=== PATIENT | female | born 1995 | race Caucasian/White ===

== ENCOUNTER 2016-08-16 12:15 | Emergency (ER) | payer OTHER ==
[2016-08-16] MEDS ORDERED: DEXAMETHASONE 10 MG/ML VIAL PO STA (13:32)
[2016-08-16] MEDS ORDERED: CHERRY SYRUP 10 ML UDC PO ONE (13:37)
[2016-08-16] MEDS ORDERED: DEXAMETHASONE 10 MG/ML VIAL ONE (13:37)
== END 2016-08-16 13:50 | disposition home or self-care (01) ==
DX: L24.5 Irritant contact dermatitis due to other chemical products (principal); E03.9 Hypothyroidism, unspecified
CPT/HCPCS: 99283; A9270

== ENCOUNTER 2020-10-07 14:04 | Emergency (ER) | payer MEDICAID, OTHER ==
[2020-10-07 14:15] VITALS: BP 157/91
--- NOTE | 2020-10-07 14:48 | ED Physician Documentation ---
PD HPI LOWER EXT INJURY - Stated complaint Stated Complaint: RT LEG INJURY - Chief complaint Chief Complaint: Ext Problem - History obtained from History obtained from: Patient - Additional information Additional information: She fell while snowboarding about a month ago. It was not too bad for the first couple of weeks but has had progressive IT band and hamstring pain ever since. She is able to walk and bear weight but is using crutches for partial weightbearing on the right. She feels like her back is starting to hurt because it is compensating for the right leg pain. Review of Systems Constitutional: reports: Reviewed and negative Eyes: reports: Reviewed and negative Ears: reports: Reviewed and negative Nose: reports: Reviewed and negative PD PAST MEDICAL HISTORY - Past Medical History Respiratory: Asthma Endocrine/Autoimmune: HyPOthyroidism - Past Surgical History Past Surgical History: Yes HEENT: Tonsil/Adenoidectomy - Present Medications Home Medications: Ambulatory Orders Medication Instructions Recorded Confirmed Albuterol Sulfate [Proair Hfa 1 - 2 puffs PRN 08/16/16 Inhaler] Levothyroxine [Synthroid] 137 mcg DAILY 08/16/16 08/16/16 Cyclobenzaprine [Flexeril] 10 mg PO TID PRN #20 tablet 10/07/20 HYDROcod/ACETAM 5/325 [[place] 5/325] 1 - 2 tab PO Q6H PRN #15 tablet 10/07/20 Ibuprofen [Motrin] 800 mg PO Q8H PRN #30 tablet 10/07/20 - Allergies Allergies/Adverse Reactions: Allergies Allergy/AdvReac Type Severity Reaction Status Date / Time Penicillins Allergy Unknown Unknown Verified 08/16/16 13:15 - Social History Does the pt smoke?: No Smoking Status: Never smoker Does the pt drink ETOH?: No Does the pt have substance abuse?: No PD ED PE NORMAL - Vitals Vital signs reviewed: Yes - General General: Alert and oriented X 3, No acute distress - HEENT HEENT: PERRL, EOMI - Neck Neck: Supple, no meningeal sign, No bony TTP - Cardiac Cardiac: RRR, No murmur - Respiratory Respiratory: No respiratory distress, Clear bilaterally - Abdomen Abdomen: Non tender - Extremities Extremities: Other (No bony tenderness of the right lower extremity or midline lumbar spine. She is tender over the right IT band and the hamstring. She is able to walk. Hamstring strength is normal but painful. Ligamentous testing of the right knee is normal.) - Neuro Neuro: Alert and oriented X 3, Normal speech Results - Vitals Vitals: Vital Signs - 24 hr 10/07/20 14:09 Temperature 36.3 C L Heart Rate 90 Respiratory 18 Rate Blood Pressure 157/91 H O2 Saturation 98 Oxygen O2 Source Room air PD MEDICAL DECISION MAKING - ED course ED course: 24-year-old woman with muscular and tendinous injuries to the right leg from a snowboarding accident a month ago. I offered x-rays but with the discussion that I felt they would be low yield and she declined preferring to try something for pain and follow-up with orthopedics. Departure - Departure Disposition: Home, Self Care Clinical Impression: Iliotibial band syndrome of right side Hamstring muscle strain Qualifiers: Encounter type: initial encounter Laterality: right Qualified Code(s): S76.311A - Strain of muscle, fascia and tendon of the posterior muscle group at thigh level, right thigh, initial encounter Condition: Good Record reviewed to determine appropriate education?: Yes Instructions: ED Strain Muscle Ext Follow-Up: [facility] [Provider Group] Prescriptions: Cyclobenzaprine [Flexeril] 10 mg PO TID PRN #20 tablet PRN Reason: Spasms Ibuprofen [Motrin] 800 mg PO Q8H PRN #30 tablet PRN Reason: PAIN &/OR FEVER HYDROcod/ACETAM 5/325 [[place] 5/325] 1 - 2 tab PO Q6H PRN #15 tablet PRN Reason: Pain Comments: Follow-up with the orthopedics clinic calling today or Saturday for an appointment. Return for new or worsening symptoms. Do not drink or drive while taking narcotic pain medication. Note that many narcotic pain relievers also contain Tylenol/acetaminophen. Please ensure that your total dose of acetaminophen from all sources does not exceed 3 g (3000 mg) per day. You may get constipated while on this medication. Take a stool softener such as Colace twice a day while you are on it. Also add an yoza-wia-lfebjek laxative such as senna or MiraLAX on any day that you do not have a bowel movement. If you received a narcotic pain medication or sedative while in the emergency department, do not drive for the next 24 hours.
== END 2020-10-07 14:58 | disposition home or self-care (01) ==
LOC: ED 14:04
DX: S76.311A Strain of muscle, fascia and tendon of the posterior muscle group at thigh level, right thigh, initial encounter (principal); M76.31 Iliotibial band syndrome, right leg; V00.311A Fall from snowboard, initial encounter; Y93.23 Activity, snow (alpine) (downhill) skiing, snowboarding, sledding, tobogganing and snow tubing
CPT/HCPCS: 99283; 99284

== ENCOUNTER 2020-10-17 07:00 | Outpatient (CLI) | payer MEDICAID ==
--- NOTE | 2020-10-18 09:42 | XRAY Report ---
PROCEDURE: Lumbar Spine 2 View INDICATIONS: ILIOTIBIAL BAND SYNDROME, R KNEE TECHNIQUE: 3 views of the lumbar spine were acquired. COMPARISON: 01/03/2009. FINDINGS: Bones: 5 [id number] vertebrae are present. There is levocurvature of the lumbar spine centered at L3. Straightening of normal lumbar lordosis. No acute vertebral body compression fractures. No suspicious bony lesions. No evidence for spondylolisthesis. Soft tissues: Overlying bowel gas pattern is normal. No suspicious soft tissue calcifications. IMPRESSION: 1. Lumbar spine without acute fracture or dislocation. 2. Levocurvature of the lumbar spine centered at L3 with straightening of normal lumbar lordosis. Fin dings may be in part due to patient positioning and/or concurrent muscle spasms. Reviewed by: Raoul Bolton MD on 10/18/2020 9:40 AM PDT Approved by: Raoul Bolton MD on 10/18/2020 9:40 AM PDT Station ID: [id number]
== END 2020-10-17 23:59 | disposition home or self-care (01) ==
LOC: DI.N 07:00
PROVIDERS: ATTEND Family Medicine
DX: M76.31 Iliotibial band syndrome, right leg (principal)

== ENCOUNTER 2025-01-14 11:12 | Inpatient (IN) ==
[2025-01-14] MEDS ORDERED: CALCIUM CARBONATE CHEW 500 MG TABLET PO PRN (12:25)
[2025-01-14] MEDS ORDERED: miSOPROStoL 200 MCG TABLET PR PRN (12:25)
[2025-01-14] MEDS ORDERED: ACETAMINOPHEN 500 MG TABLET PO PRN (12:25)
[2025-01-14] MEDS ORDERED: LABETALOL 20 MG/4 ML SYRINGE IVP PRN ×3 (12:25)
[2025-01-14] MEDS ORDERED: lidocaine 1% 20 ML MDV ID PRN (12:25)
[2025-01-14] MEDS ORDERED: hydrALAZINE INJ 20 MG/ML VIAL IVP PRN (12:25)
[2025-01-14] MEDS ORDERED: CARBOPROST TROMETHAMINE 250 MCG/ML VIAL IM PRN (12:25)
[2025-01-14] MEDS ORDERED: METOCLOPRAMIDE 10 MG/2 ML VIAL IVP PRN (12:25)
[2025-01-14] MEDS ORDERED: NIFEdipine 10 MG CAPSULE PO PRN (12:25)
[2025-01-14] MEDS ORDERED: OXYTOCIN 10 UNIT/ML VIAL IM PRN (12:25)
[2025-01-14] MEDS ORDERED: TRANEXAMIC ACID IN NACL 1,000 MG/100 ML BAG IV PRN (12:25)
[2025-01-14] MEDS ORDERED: fentaNYL 100 MCG/2 ML VIAL IVP PRN (12:25)
[2025-01-14] MEDS ORDERED: TERBUTALINE 1 MG/ML VIAL SUBQ PRN (12:25)
[2025-01-14] MEDS ORDERED: miSOPROStoL 200 MCG TABLET BC PRN (12:25)
[2025-01-14] MEDS ORDERED: METHYLERGONOVINE 0.2 MG/ML VIAL IM PRN (12:25)
[2025-01-14] MEDS ORDERED: SODIUM CHLORIDE FLUSH 0.9% 10 ML SYRINGE IVP PRN (12:25)
[2025-01-14 13:05] LABS: BASOPHILS # (AUTO) 0.1 10^3/uL (0.0-0.1); BASOPHILS % (AUTO) 0.5 %; EOSINOPHILS # (AUTO) 0.1 10^3/uL (0.0-0.7); EOSINOPHILS % (AUTO) 0.9 %; HCT - HEMATOCRIT 32.9 % (37.0-47.0); HGB - HEMOGLOBIN 10.4 g/dL (12.0-16.0); LYMPHOCYTES % (AUTO) 15.8 %; MEAN CORPUSCULAR HEMOGLOBIN 23.4 pg (27.0-31.0); MEAN CORPUSCULAR HGB CONC 31.6 g/dL (32.0-36.0); MEAN CORPUSCULAR VOLUME 73.9 fL (81.0-99.0); MEAN PLATELET VOLUME 10.1 fL (7.9-10.8); MONOCYTES # (AUTO) 0.8 10^3/uL (0.0-1.0); MONOCYTES % (AUTO) 6.6 %; NEUTROPHILS # (AUTO) 9.5 10^3/uL (1.5-6.6); NEUTROPHILS % (AUTO) 75.5 %; PLT - PLATELET COUNT 340 10^3/uL (130-450); RED BLOOD COUNT 4.45 10^6/uL (4.20-5.40); RED CELL DISTRIBUTION WIDTH 17.1 % (12.0-15.0); WHITE BLOOD COUNT 12.5 x10^3/uL (4.8-10.8)
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
[2025-01-14 13:24] LABS: ALBUMIN 3.5 g/dL (3.2-5.5); ALBUMIN/GLOBULIN RATIO 1.2 (1.0-2.2); BILIRUBIN,TOTAL 0.3 mg/dL (0.2-1.0); CALCIUM 8.9 mg/dL (8.5-10.3); CREATININE 0.5 mg/dL (0.6-1.3); POTASSIUM 4.1 mmol/L (3.5-4.5); TOTAL PROTEIN 6.4 g/dL (6.4-8.9)
[2025-01-14] MEDS: miSOPROStoL 100 MCG TABLET PO SCH (13:40)
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
[2025-01-14] MEDS: SODIUM CHLORIDE FLUSH 0.9% 10 ML SYRINGE IVP SCH (21:35)
[2025-01-14] MEDS: metFORMIN 500 MG TABLET PO SCH ×2 (21:46→23:03)
[2025-01-14] MEDS: diphenhydrAMINE 25 MG CAPSULE PO PRN (21:47)
[2025-01-14] MEDS: ceFAZolin (2G) 2 GM in SODIUM CHLORIDE 0.9% MINIBAG 100 ML IV ONE (21:58)
[2025-01-15] MEDS: ceFAZolin 1 GM in SODIUM CHLORIDE 0.9% MINIBAG 100 ML IV SCH (02:00)
--- NOTE | 2025-01-15 11:35 | PROVIDER PROGRESS NOTE ---
Labor Progress Note Uterine Monitoring Uterine Monitoring Mode: positive External toco Contraction Frequency (min/apart): 2-7. Irregular Contraction Intensity: positive Mild Monitoring Monitor Mode: positive External ultrasound Heart Rate Baseline: 140 Heart Rate Variability: positive Moderate (6-25 bmp) Accelerations: positive Present, 15x15 Decelerations: positive None Strip Review: positive Category I Labor Progress Note Labor Progress Note/Additional Text: Has received 5 doses misoprostol. Will give another dose then check cervix. Did not tolerate last cervical exam, so will consider nitrates with next exam. Pain dilation, will consider cervical ripening balloon versus amniotomy versus oxytocin. Currently mom and baby are doing well
[2025-01-15] MEDS: ONDANSETRON ODT 4 MG TABLET PO PRN (12:20)
--- NOTE | 2025-01-15 13:08 | PROVIDER PROGRESS NOTE ---
Labor Progress Note Labor Progress Note Labor Progress Note/Additional Text: Changed from close to 3 cm. SROM followed by contractions. Feeling them regularly. Will reassess in 2 hours.
[2025-01-15] MEDS: LACTATED RINGERS 1,000 ML IV PRN (13:18)
[2025-01-15] MEDS: AMPICILLIN 2 GM in SODIUM CHLORIDE 0.9% MINIBAG 100 ML IV ONE (13:30)
[2025-01-15] MEDS ORDERED: ROPIVACAINE 0.2% 200 MG/100 ML BAG EP ONE (13:47)
--- NOTE | 2025-01-15 14:16 | PHARMACY PROGRESS NOTE ---
Best Possible Medication History Admit Date and Time: 01/14/25 [id number] Home Medications Medication Instructions Recorded Confirmed Type vitamins no.154-ferrous 1 tab PO .daily #90 t abs 08/06/24 01/15/25 Rx fumarate 27 mg-folic acid 1 mg tablet ferrous sulfate 325 mg (65 mg 325 mg PO .QOD 10/22/24 01/15/25 History iron) tablet (Feosol) blood sugar diagnostic (Blood #10 ea 11/03/24 01/11/25 Rx Glucose Test strips) blood-glucose meter (Blood Glucose #1 ea 11/03/2404/29 Rx Monitoring kit) lancets 33 gauge (Ultra Thin #100 ea 11/03/24 01/11/25 Rx Lancets) magnesium 200 mg tablet 200 mg PO DAILY 11/05/24 History aspirin 81 mg tablet,delayed 81 mg PO DAILY prevent pr eeclampsia 01/15/25 01/15/25 History release (Enteric Coated Aspirin) cholecalciferol (vitamin D3) 50 50 mcg PO DAILY 01/15/25 History mcg (2,000 unit) capsule metformin 500 mg tablet 1,000 mg PO QPM 01/15/25 History Processed by: Pharmacy Medications reviewed in ED?: No Medication History completed: Yes Patient Interview: Pt unable to participate Secondary Source(s): Physician records and Insurance records [facility] Statement: As the person ultimately responsible for medication therapy, providers are able to order a medication from an existing home medication list in [facility] via the "Reconcile Routine" prior to Confirmation of that medication by production support manager. Such practice is discouraged except when the physician, in their clinical judgment, deems that a medical need exists for a medication without regard to previous use.
[2025-01-15] MEDS ORDERED: ePHEDrine 50 MG/ML VIAL IVP ONE (14:20)
[2025-01-15] MEDS ORDERED: ePHEDrine 50 MG/ML VIAL IVP PRN (14:27)
[2025-01-15] MEDS ORDERED: LACTATED RINGERS 500 ML IV ONE (14:27)
[2025-01-15] MEDS ORDERED: NALOXONE 0.4 MG/ML VIAL IVP PRN (14:27)
[2025-01-15] MEDS ORDERED: diphenhydrAMINE INJ 50 MG/ML VIAL IVP PRN (14:27)
[2025-01-15] MEDS ORDERED: ONDANSETRON 4 MG/2 ML VIAL IVP PRN (14:27)
[2025-01-15] MEDS ORDERED: NALBUPHINE 10 MG/ML AMP IVP PRN (14:27)
[2025-01-15] MEDS: METOCLOPRAMIDE 10 MG/2 ML VIAL IVP PRN (14:37)
[2025-01-15] MEDS ORDERED: fentaNYL 100 MCG/2 ML VIAL ONE (15:26)
[2025-01-15] MEDS ORDERED: SODIUM CHLORIDE 0.9% 10 ML VIAL ONE (15:27)
[2025-01-15] MEDS ORDERED: LIDOCAINE-PF 2% 10 ML AMP SUBQ ONE (15:27)
--- NOTE | 2025-01-15 15:32 | PROVIDER PROGRESS NOTE ---
Labor Progress Note Uterine Monitoring Uterine Monitoring Mode: positive External toco Contraction Frequency (min/apart): 2-4 Contraction Intensity: positive Strong Monitoring Monitor Mode: positive External ultrasound Heart Rate Baseline: 145 Heart Rate Variability: positive Moderate (6-25 bmp) Accelerations: positive Present, 15x15 Decelerations: positive Variable Strip Review: positive Category II Labor Progress Note Labor Progress Note/Additional Text: Rare variable deceleration. Received epidural for pain control as the contractions got more intense. Not working well, so bolusing. Will replace if not working. Does not tolerate cervical exams well, so we will wait for pain control from epidural. If unchanged, will start oxytocin.
--- NOTE | 2025-01-15 15:40 | ANESTHESIA PROCEDURE NOTE ---
Anesthesia Epidural Template Patient Report Patient Reports: positive Inadequate control (patient reports pain with contractions on left lower abdomen) Exam Epidural Medication Information: Rates pain 8/10 with contraction on left lower abdomen. T-10 level on right side, no level on left side. Minimal motor block on right side, no motor block on left. Plan Plan: positive Other (epidural bolused with 7ml 2% lidocaine, 100mcg fentanyl and 10ml of PFNS. No relief from contractions after bolus. Will replace epidural.) Other Comments Other Comments: Previously placed epidural removed with tip intact. Moved up to L3-L4 level. Prepped with chlorahexadine, 3ml of 1% lidocaine used for skin local. MASTER at 10cm. No CSF, Heme or paresthesia with epidural placement. Positive CSF with 25G whitacer spinal needal. Catheter advanced with ease to 16cm at the skin. Test dose was negative with 3ml of 2% lidocaine with epi. Patient rates pain 0/10 after test dose. Epidural drip changed to a continuous infusion at 10ml/hr with 4ml q 10mins pcea.
[2025-01-15] MEDS ORDERED: LIDOCAINE 2%-EPI 1:100000 20 ML MDV ONE (15:44)
[2025-01-15] MEDS: AMPICILLIN 1 GM in SODIUM CHLORIDE 0.9% MINIBAG 100 ML IV SCH (18:11)
[2025-01-15] MEDS: ROPIVACAINE 0.2% 200 MG/100 ML BAG EP PRN (22:12)
[2025-01-15] MEDS: OXYTOCIN/SODIUM CHLORIDE 500 ML IV PRN (22:59)
[2025-01-16] MEDS ORDERED: ONDANSETRON 4 MG/2 ML VIAL IVP PRN (01:29)
[2025-01-16] MEDS ORDERED: SIMETHICONE CHEW 80 MG TABLET PO PRN (01:29)
[2025-01-16] MEDS ORDERED: WITCH HAZEL/GLYCERIN 1 PAD TOP PRN (01:29)
[2025-01-16] MEDS ORDERED: CALCIUM CARBONATE CHEW 500 MG TABLET PO PRN (01:29)
--- NOTE | 2025-01-16 01:35 | DELIVERY NOTE ---
Delivery Note Labor Labor: positive Augmented by oxytocin Infant Delivery Method Delivery Method: positive Spontaneous vaginal delivery Cervical Ripening Method Cervical Ripening Method: positive Misoprostil Presentation Presentation: positive Vertex Nuchal Cord Nuchal Cord: positive Present Amniotic Fluid Description Amniotic Fluid Description: positive Clear Laceration Laceration: positive 2nd degree Suture Suture Type: positive Vicryl Suture Size: positive 3-0 and 4-0 : positive Placed in direct skin contact with mother and [place] used Cord Cord: positive 3 vessels Placenta Placenta: positive Intact Estimated Blood Loss Estimated Blood Loss (in cc): 450 Post Delivery Events Post Delivery Events: positive No post delivery events Delivery Comments (Free Text/Narrative) Delivery Comments (Free Text/Narrative): Preoperative Diagnoses 39 weeks gestation Induction of labor Gestational diabetes managed with oral antihyperglycemics Postoperative Diagnoses Same Status post spontaneous vaginal delivery Delivered live bo Second-degree midline laceration Summary Patient has been at 39 weeks for induction of labor secondary to gestational diabetes managed with metformin. She had 5 then had doses of misoprostol SROM and began amira regularly. She continued to progress until complete and started pushing. While pushing, contractions started spacing out, so oxytocin was initiated for augmentation. She continued to push until to deliver. Delivery Summary: Patient was placed in the dorsal lithotomy position. Upon maternal pushing the head was delivered atraumatically followed by the anterior shoulder, posterior shoulder, then the remainder of the infant's body. Nuchal cord was present, but I was unable to reduce this, and baby delivered quickly as I was attempting to reduce the cord. A male was delivered with APGARS of 8 at 1 minute and 9 at 5 minutes. The was placed on its mother's chest . After the cord finished pulsating, the umbilical cord was clamped times two and cut. The placenta delivered intact with three vessel cord. Placenta was not sent to pathology. Thirty units of Pitocin were added to the IV fluid and allowed to run freely. Uterine massage was performed until uterus was deemed firm. Upon inspection of the perineum, brisk bleeding was noted from a second-degree midline laceration. The cervix also seemed to be bleeding. A sponge was placed in the vagina to stop the cervical bleeding and the second-degree laceration was repaired in a running fashion. Attention was then turned to the cervical bleed, this was walked with a ring forcep and showed no direct bleeding areas, although they The anterior aspect had a diffuse venous bleed. I attempted to suture this in several spots and took care of most of the bleeding, however due to the diffuse oozing, I held pressure until bleeding decreased. Upon re-inspection the patient was hemostatic. Uterus again massaged and found to be firm. Needle and sponge counts were correct. Patient was stable and allowed to recover in L&D room. was stable and remained in room with mother. weight is pending at this time.
[2025-01-16] MEDS: ACETAMINOPHEN 500 MG TABLET PO SCH (02:48)
[2025-01-16] MEDS: IBUPROFEN 600 MG TABLET PO SCH (02:49)
[2025-01-16] MEDS: oxyCODONE 5 MG TABLET PO PRN (07:46)
--- NOTE | 2025-01-16 09:45 | PROVIDER PROGRESS NOTE ---
Subjective Subjective Subjective: Subjective Patient reports she is doing well. Lochia appropriate. Denies heavy bleeding. Ambulating. Pelvic and abdominal pain well-controlled. Tolerating oral intake. Diet: Regular. Voiding without difficulty. Passing flatus. Denies BM. Patient is bonding with baby in room Breast feeding going well. Denies feeling lightheaded, dizzy or excessively fatigued. Objective General: Alert, oriented, no apparent distress. Cardiovascular: Regular rate. Regular rhythm. Lungs: No increased work of breathing. Abdomen: Uterus firm. Below umbilicus. No guarding or rebound. Extremities: No pain on palpation. No cords palpated. Distal pulses intact. Current Medications Current Medications Current Medications: Current Medications Generic Name Dose Route Start Last Admin Trade Name Freq PRN Reason Stop Dose Admin Acetaminophen 1,000 mg 01/16/25 06:00 01/16/25 02:48 Acetaminophen 500 Mg Tablet PO 1,000 mg Q8HR SINTIA Administration Calcium Carbonate/Glycine 1,000 mg 01/14/25 12:25 Calcium Carbonate Chew 500 Mg Tablet PO Q6HR PRN Heartburn Calcium Carbonate/Glycine 500 mg 01/16/25 01:29 Calcium Carbonate Chew 500 Mg Tablet PO TID PRN Heartburn Carboprost Tromethamine 250 mcg 01/14/25 12:25 Carboprost Tromethamine 250 Mcg/Ml Vial IM .ONCE PRN Hemorrhage Diphenhydramine HCl 50 mg 01/14/25 12:25 01/14/25 21:47 Diphenhydramine 25 Mg Capsule PO 50 mg QPM PRN Administration Insomnia Diphenhydramine HCl 12.5 - 25 mg 01/15/25 14:27 Diphenhydramine Inj 50 Mg/Ml Vial IVP Q6HR PRN ITCHING Docusate Sodium 100 mg 01/16/25 10:00 Docusate Sodium 100 Mg Capsule PO BID SINTIA Ephedrine Sulfate 5 mg 01/15/25 14:27 Ephedrine 50 Mg/Ml Vial IVP Q5M PRN For SBP<100;give until SBP>100 Hydralazine HCl 5 - 10 mg 01/14/25 12:25 Hydralazine Inj 20 Mg/Ml Vial IVP Q20M PRN SBP> or= 160 OR DBP> or= 110 Protocol Lactated Ringer's 500 mls @ 999 mls/hr 01/14/25 12:01/16/25 03:00 Lr IV Infused PRN PRN Infusion Abdominal Pain Oxytocin/Sodium Chloride 500 mls @ 999 mls/hr 01/14/25 12:25 01/16/25 03:00 Pitocin/Sodium Chloride IV 0 milliunit/min PRN PRN 0 mls/hr POST- HEMORR PREVENTION Titration Protocol 999 MILLIUNIT/MIN Tranexamic Acid 1,000 mg in 100 mls @ 600 mls/hr 01/14/25 12:25 Tranexamic 1,000 Mg/100ml-Nacl IV Q30M PRN EBL >1200mL and within 3hr Lactated Ringer's 1,000 mls @ 100 mls/hr 01/16/25 02:00 Lr IV .Q10H SINTIA Ibuprofen 600 mg 01/16/25 02:00 01/16/25 08:37 Ibuprofen 600 Mg Tablet PO 600 mg Q6HR SINTIA Administration Labetalol HCl 20 - 80 mg 01/14/25 12:25 Labetalol 20 Mg/4 Ml Syringe IVP Q10M PRN SBP> or= 160 OR DBP> or= 110 Protocol Labetalol HCl 20 mg 01/14/25 12:25 Labetalol 20 Mg/4 Ml Syringe IVP .ONCE PRN SBP> or= 160 OR DBP> or= 110 Protocol Labetalol HCl 20 - 40 mg 01/14/25 12:25 Labetalol 20 Mg/4 Ml Syringe IVP Q10M PRN SBP> or= 160 OR DBP> or= 110 Protocol Lidocaine HCl 20 ml 01/14/25 12:25 Lidocaine 1% 20 Ml Mdv ID 01/17/25 12:25 .ONCE PRN PERINEAL REPAIR Metformin HCl 1,000 mg 01/14/25 22:00 01/15/25 21:06 Metformin 500 Mg Tablet PO 1,000 mg HS SINTIA Administration Methylergonovine Maleate 0.2 mg 01/14/25 12:25 Methylergonovine 0.2 Mg/Ml Vial IM .ONCE PRN Hemorrhage Metoclopramide HCl 5 mg 01/14/25 12:25 Metoclopramide 10 Mg/2 Ml Vial IVP Q6HR PRN Nausea / Vomiting Metoclopramide HCl 10 mg 01/15/25 14:27 01/15/25 14:37 Metoclopramide 10 Mg/2 Ml Vial IVP 10 mg Q6HR PRN Administration Nausea / Vomiting Misoprostol 600 mcg 01/14/25 12:25 Misoprostol 200 Mcg Tablet BC .ONCE PRN Hemorrhage Misoprostol 800 mcg 01/14/25 12:25 Misoprostol 200 Mcg Tablet DE .ONCE PRN Hemorrhage Naloxone HCl 0.1 mg 01/15/25 14:27 Naloxone 0.4 Mg/Ml Vial IVP Q2M PRN RR<8 Nifedipine 10 - 20 mg 01/14/25 12:25 Nifedipine 10 Mg Capsule PO Q20M PRN SBP> or= 160 OR DBP> or= 110 Protocol Ondansetron HCl 4 mg 01/14/25 12:25 01/15/25 12:20 Ondansetron Odt 4 Mg Tablet PO 4 mg Q4HR PRN Administration Nausea / Vomiting Ondansetron HCl 4 mg 01/16/25 01:29 Ondansetron 4 Mg/2 Ml Vial IVP Q4HR PRN Nausea / Vomiting Oxycodone HCl 5 mg 01/16/25 07:35 01/16/25 07:46 Oxycodone 5 Mg Tablet PO 5 mg Q4HR PRN Administration Moderate Pain (Level 4-6) Oxytocin 10 unit 01/14/25 12:25 Oxytocin 10 Unit/Ml Vial IM .ONCE PRN Step One if no IV access. Simethicone 80 mg 01/16/25 01:29 Simethicone Chew 80 Mg Tablet PO TID PRN Gas Sodium Chloride 10 ml 01/14/25 12:25 Sodium Chloride Flush 0.9% 10 Ml Syringe IVP PRN PRN NEEDED PER PROVIDER ORDERS Sodium Chloride 10 ml 01/14/25 13:00 01/15/25 06:22 Sodium Chloride Flush 0.9% 10 Ml Syringe IVP Not Given Q8H SINTIA Terbutaline Sulfate 0.25 mg 01/14/25 12:25 Terbutaline 1 Mg/Ml Vial SUBQ .ONCE PRN Tachystole Witch Vickie/Glycerin 1 pad 01/16/25 01:29 Witch Vickie/Glycerin 1 Pad TOP PRN PRN ITCHING Objective Vital Signs/Intake & Output Vital Signs: Vital Signs x48h Temp Pulse Resp BP 01/16/25 08:42 72 16 106/54 L 01/16/25 05:05 94 18 115/63 01/16/25 04:00 36.9 C 71 17 109/46 L 01/16/25 03:15 89 17 123/79 01/16/25 03:00 97 17 111/61 01/16/25 02:45 97 17 134/79 H 01/16/25 02:30 85 17 127/76 01/16/25 02:15 83 18 124/61 01/16/25 02:00 91 18 123/79 Intake & Output: Intake & Output 01/13/25 01/14/25 01/15/25 01/16/25 23:59 23:59 23:59 23:59 Intake Total 645 / 645 934 / 934 Output Total 600 / 600 600 / 600 Balance 45 / 45 334 / 334 Lab Results 01/14/25 12:00 01/14/25 12:00 Other Labs: Lab Results x24hrs 01/16/25 01/16/25 01/15/25 Range/Units 07:37 00:16 22:15 POC Whole Bld Glucose 116 105 102 (70-100) mg/dL 01/15/25 01/15/25 01/15/25 Range/Units 20:26 18:21 16:14 POC Whole Bld Glucose 85 80 94 (70-100) mg/dL 01/15/25 01/15/25 Range/Units 13:39 11:27 POC Whole Bld Glucose 81 76 (70-100) mg/dL Assessment/Plan Problem List (1) care and examination of lactating mother: Impression: Routine care. Anticipate discharge tomorrow. (2) Delivery outcome of bo : Impression: As above Qualifiers: outcome: live Qualified Code(s): Z37.0 - Single live (3) Gestational diabetes mellitus, class A2: Impression: Normal fasting blood sugar this morning. Discontinue metformin.
[2025-01-16] MEDS: DOCUSATE SODIUM 100 MG CAPSULE PO SCH (10:36)
[2025-01-16 22:49] VITALS: O2SAT 98
[2025-01-17] MEDS: HYDROCORTISONE 1% CREAM 28 GM TUBE TOP PRN (03:25)
[2025-01-17] MEDS: LACTATED RINGERS 1,000 ML IV SCH (04:16)
[2025-01-17 07:58] VITALS: BP 114/59; TEMP 97.7
--- NOTE | 2025-01-17 08:39 | Discharge Summary ---
Discharge Summary Admit Date: 01/14/25 Discharge Date: 01/17/25 Discharging Provider: Jarod Garcia MD Code Status: Attempt Resuscitation DIAGNOSES Admission Diagnoses: 39 weeks gestation Gestational diabetes, A2 managed with oral antihyperglycemics GBS positive Discharge Diagnoses with Status of Each Condition: 39 weeks gestation Gestational diabetes, A2 managed with oral antihyperglycemics GBS positive Status post spontaneous vaginal delivery Delivery of live bo HPI History of Present Illness: Subjective Patient reports she is doing well. Lochia appropriate. Denies heavy bleeding. Ambulating. Pelvic and abdominal pain well-controlled. Tolerating oral intake. Diet: Regular. Voiding without difficulty. Passing flatus. Denies BM. Patient is bonding with baby in room Breast feeding going well. Denies feeling lightheaded, dizzy or excessively fatigued. Objective General: Alert, oriented, no apparent distress. Cardiovascular: Regular rate. Regular rhythm. Lungs: No increased work of breathing. Abdomen: Uterus firm. Below umbilicus. No guarding or rebound. HOSPITAL COURSE Hospital Course: Patient is admitted to the hospital at 39 weeks gestation for induction of labor. She had 5 doses misoprostol then spontaneous rupture of membranes. She continued to progress on her own until with ready to push. While pushing, contractions spaced out and had hypotonic uterine contractions, so oxytocin was started. She continued to progress until ready for delivery. Delivery was complicated by second-degree midline laceration and a cervical bleed. This was controlled and had no problems after delivery. course was unremarkable and was discharged on day 1. ALLERGIES Allergies Allergy/AdvReac Type Severity Reaction Status Date / Time Penicillins Allergy Intermediate Rash Verified 01/11/25 11:38 MEDICATIONS Ambulatory Orders Medication Instructions Recorded Confirmed ferrous sulfate 325 mg (65 mg 325 mg PO .QOD 10/22/24 01/15/25 iron) tablet (Feosol) blood sugar diagnostic (Blood #10 ea 11/03/24 01/11/25 Glucose Test strips) blood-glucose meter (Blood Glucose #1 ea 11/03/2404/29 Monitoring kit) lancets 33 gauge (Ultra Thin #100 ea 11/03/24 01/11/25 Lancets) magnesium 200 mg tablet 200 mg PO DAILY 11/05/24 cholecalciferol (vitamin D3) 50 50 mcg PO DAILY 01/15/25 mcg (2,000 unit) capsule PHYSICAL EXAM AT DISCHARGE Vital Signs: Vital Signs x48h Temp Pulse Resp BP Pulse Ox 01/17/25 07:57 36.5 C 66 16 114/59 L 98 01/17/25 02:00 36.9 C 84 16 113/62 LABS 01/14/25 12:00 01/14/25 12:00 FOLLOW UP Follow Up: With [facility] women's care in 1 to 2 weeks TIME SPENT Time Spent in Discharge (Minutes): 20 Discharge Plan Discharge Patient Disposition: Home, Self Care Condition: Stable Medically Cleared Date:: 01/17/25 Prescriptions: Continued cholecalciferol (vitamin D3) 50 mcg (2,000 unit) capsule 50 mcg PO DAILY magnesium 200 mg tablet 200 mg PO DAILY ferrous sulfate [Feosol] 325 mg (65 mg iron) tablet 325 mg PO .QOD Discontinued metformin 500 mg tablet 1,000 mg PO QPM Rx Instructions: Start with one tablet by mouth once a day then increase to two tablets by mouth once a day after 3 days. aspirin [Enteric Coated Aspirin] 81 mg tablet,delayed release (DR/EC) 81 mg PO DAILY PNV no.154-iron fumarate-folic 27 mg iron- 1 mg tablet 1 tab PO .daily Qty: 90 4RF Rx Instructions: any covered No Action (DME) blood-glucose meter [Blood Glucose Monitoring] Kit See Rx Instructions .MEDSUPPLY Qty: 1 0RF Rx Instructions: to check blood sugar 4 times a day (DME) Blood Glucose Test Strip See Rx Instructions .MEDSUPPLY Qty: 10 0RF Rx Instructions: As directed to check blood sugar 4 times a day. (DME) lancets [Ultra Thin Lancets] 33 gauge misc See Rx Instructions .MEDSUPPLY Qty: 100 0RF Rx Instructions: To check blood sugar four times a day Activity Restrictions: Additional Comments Activity Restrictions/Additional Instructions: No heavy lifting for 6 weeks. Nothing vagina for 6 weeks. Diet: Regular Print Language: Sinhala Patient Instructions: After a Vaginal , Depression Follow-up Care: Shalonda Gupta ARNP [Primary Care Provider] - Jarod Garcia MD [Provider Admit Priv/Credential] -
--- NOTE | 2025-01-17 12:55 | Labor Flowsheet ---
Labor Flowsheet Datetime Report Generated by CPN: 01/17/2025 12:55 Datetime: 01/17/2025 07:55 VITAL SIGNS NBP Sys/Rivka/Mean (mmHg): 114 : 59 : 72 Pulse: 61 LaborFlag: Labor Datetime: 01/16/2025 04:01 Membranes Ruptured Date/Time: 01/15/2025 10:22 Membranes Rupture Method: Spontaneous Amniotic Fluid Color: Clear Amniotic Fluid Amount: Moderate Amniotic Fluid Odor: Normal MEDICATIONS Cervical Ripening Agents: Cytotec @ Datetime: 01/16/2025 01:44 SpO2 (%): 98 Datetime: 01/16/2025 01:14 STAGE 2 Stage 2 Comments: 2nd degree tear-repaired Datetime: 01/16/2025 00:56 Comments: pitocin bolus running Datetime: 01/16/2025 00:45 UTERINE ACTIVITY Monitor Mode: External Frequency (min): 1-3 Quality: Strong Pattern: Normal: <= 5 Contractions in 10 Minutes Resting Tone (Palpate): Relaxed ASSESSMENT A Monitor Mode: Telemetry FHR Baseline Rate : 120 Variability: Moderate 6-25 bpm Accelerations: 15X15 Datetime: 01/16/2025 00:41 Communication Comments: dr. rosa notified to come in for delivery Datetime: 01/16/2025 00:30 Decelerations: Late Datetime: 01/16/2025 00:12 Temperature (C): 36.9 Datetime: 01/15/2025 22:29 Duration (sec): 70-120 Datetime: 01/15/2025 21:38 Patient Position/Activity: Right Tilt Patient Care Comments: position change Datetime: 01/15/2025 21:24 VAGINAL EXAM Dilatation (cm): 9.5 Effacement (%): 95 Station: 1 Exam by: Sabrina RN Vaginal Bleeding: Normal Show Datetime: 01/15/2025 18:31 Actions for Decelerations: Sterile Vaginal Exam PATIENT CARE Oxygen Method: Room Air Datetime: 01/15/2025 18:16 Cervix, Consistency: Soft Cervix, Position: Anterior Datetime: 01/15/2025 18:01 Category: Category II Datetime: 01/15/2025 17:30 Monitor Interventions for UA: [place] Adjusted Datetime: 01/15/2025 17:00 Contraction Comments: palpating at bedside Datetime: 01/15/2025 16:41 Respirations: 37 Datetime: 01/15/2025 16:00 Monitor Interventions for FHR: Ultrasound Adjusted Datetime: 01/15/2025 15:58 ANESTHESIA Epidural Procedure: Test Dose Anesthesia Comments: 1558 Datetime: 01/15/2025 15:51 PROCEDURE TIME OUT Procedure Verify: Correct Patient Identity; Accurate Procedure Consent Form; Agreement on Procedure to be Done; Correct Patient Position Datetime: 01/15/2025 15:10 PAIN Pain Scale: 8 Pain Assessment Comments: Pt breathing and grimacing through contractions Datetime: 01/15/2025 14:20 Medication Comments: Ephedrine administerd by DOCUMENT IMPROVEMENT SPECIALIST Datetime: 01/15/2025 12:08 COMMUNICATION Communication: RN at Bedside Datetime: 01/15/2025 11:50 I/O Interventions: Up to BR Datetime: 01/15/2025 05:48 Temperature Route: Oral Datetime: 01/14/2025 19:00 Stage of : Labor Datetime: 01/14/2025 14:43 Pain Type: N/A
== END 2025-01-17 12:50 | disposition home or self-care (01) | DRG 807 ==
LOC: WFO 11:12 → FBP 11:12
PROVIDERS: ADMIT Obstetrics & Gynecology; ATTEND Obstetrics & Gynecology
DX: Z79.899 Other long term (current) drug therapy; O69.81X0 Labor and delivery complicated by cord around neck, without compression, not applicable or unspecified; O99.824 Streptococcus B carrier state complicating childbirth; Z3A.39 39 weeks gestation of pregnancy; O99.02 Anemia complicating childbirth; D50.9 Iron deficiency anemia, unspecified; O70.1 Second degree perineal laceration during delivery; O24.425 Gestational diabetes mellitus in childbirth, controlled by oral hypoglycemic drugs; O76 Abnormality in fetal heart rate and rhythm complicating labor and delivery; O99.214 Obesity complicating childbirth; Z37.0 Single live birth; Z79.82 Long term (current) use of aspirin